=== PATIENT | female | born 1955 | race Caucasian/White ===

== ENCOUNTER → 2024-10-13 10:33 | Outpatient (BNVA) | payer MEDICARE, BC, SELFPAY | PROVIDERS: PCP Surgery; Visit Provider Internal Medicine | DX: E04.1 Nontoxic single thyroid nodule (principal); R03.0 Elevated blood-pressure reading, without diagnosis of hypertension; E04.2 Nontoxic multinodular goiter; I10 Essential (primary) hypertension | CPT/HCPCS: 99204 ==

== ENCOUNTER 2024-10-27 11:45 | Outpatient (CLI) | payer MEDICARE, BC, SELFPAY ==
--- NOTE | 2024-10-27 12:15 | US_ITS ---
WS: [id number] THYROID ULTRASOUND HISTORY: thyroid nodules COMPARISON: None available. Right lobe: 3.9 cm x 3.1 cm x 6.8 cm (w x ap x l). Volume: 38.7 cm3. Enlarged multinodular thyroid. Nodules are hyperechoic to isoechoic to the adjacent normal gland. Carmelita y little normal gland is preserved. There are a few cystic areas within the predominant isoechoic nod ules. The largest nodule measures 3.7 x 2.5 x 4.8 cm. Left lobe: 5.7 cm x 3.8 cm x 7.2 cm (w x ap x l). Volume: 75.5 cm3. Similarly enlarged nodular LEFT thyroid. Isoechoic nodules throughout the gland with mild increased v ascularity. The largest nodule measures 4.4 x 3.0 x 7.1 cm. Isthmus: The isthmus is poorly identified as the thyroid nodules extend across the midline distorting the isthmus. US/US thyroid [id number] IMPRESSION: 1. Multinodular thyroid. There are numerous large nodules which are predominan tly isoechoic to the gland without suspicious calcifications. Due to the size a nd ultrasound appearance these are most consistent with nodules associated with a thyroid goiter.
== END 2024-10-27 11:46 | disposition home or self-care (01) ==
LOC: RAD 11:47
PROVIDERS: PCP Surgery; Visit Provider Internal Medicine
DX: E04.2 Nontoxic multinodular goiter (principal); R93.89 Abnormal findings on diagnostic imaging of other specified body structures
CPT/HCPCS: 76536